=== PATIENT | female | born 1980 | race Caucasian/White ===

== ENCOUNTER 2017-06-04 16:47 | Emergency (ER) | payer BC ==
[~2017-06-04] VITALS: Ht 165.1 cm; Wt 100.7 kg
[2017-06-04] MEDS ORDERED: IBUPROFEN 800800 M1 PO (19:41)
[2017-06-04] MEDS ORDERED: NORFLEX100 MG PO (19:41)
[2017-06-04 20:12] VITALS: BP 118/72
== END 2017-06-04 20:13 | disposition home or self-care (01) ==
LOC: ER 16:47
DX: S16.1XXA Strain of muscle, fascia and tendon at neck level, initial encounter (principal); S29.8XXA Other specified injuries of thorax, initial encounter; J45.909 Unspecified asthma, uncomplicated; F10.99 Alcohol use, unspecified with unspecified alcohol-induced disorder; Z88.2 Allergy status to sulfonamides; V49.40XA Driver injured in collision with unspecified motor vehicles in traffic accident, initial encounter; Y93.89 Activity, other specified; Y92.89 Other specified places as the place of occurrence of the external cause; Y99.8 Other external cause status